=== PATIENT | male | born 1965 | race Caucasian/White ===

== ENCOUNTER 2021-02-07 15:34 | Emergency (ER) | payer BC ==
--- NOTE | 2021-02-07 16:37 | ED ---
General Adult HPI - General Stated complaint: Covid Symptoms worsening Time Seen by Provider: 02/07/21 16:31 - History of Present Illness Initial comments: 55 year-old male patient presents for worsening COVID symptoms. States he started having symptoms 6 days ago. Had positive COVID test on Monday. States he is having increasing cough, congestion, and chills. He reports nausea and headaches. Has been taking cough syrup without relief. Denies having fevers. Denies any past medical history. Patient denies any recent rash, chest pain, abdominal pain, nausea, vomiting, diarrhea, constipation, back pain, numbness, tingling, dizziness, weakness, hematuria, dysuria, urinary urgency, urinary frequency, or any other complaints. - Related Data Home Medications Medication Instructions Recorded Confirmed Albuterol Inhaler [Ventolin Hfa 1 - 2 puff INHALATION RT-Q4H PRN 02/07/21 02/07/21 Inhaler] Aspirin EC [Ecotrin] 325 mg PO DAILY 02/07/21 02/07/21 Codeine Phosphate/Guaifenesin 5 ml PO Q6H PRN 02/07/21 02/07/21 [Guaifen-Codeine 100-10 mg/5 ml] Finasteride [Proscar] 5 mg PO DAILY 02/07/21 02/07/21 Testosterone Cypionate 500 mg IM SA 02/07/21 02/07/21 [Depo-Testosterone] Previous Rx's Medication Instructions Recorded Dexamethasone 6 mg PO DAILY #9 tablet 02/07/21 guaiFENesin-DM 600/30MG [Mucinex 2 each PO Q12HR PRN #20 tab 02/07/21 Dm] Allergies Allergy/AdvReac Type Severity Reaction Status Date / Time Sulfa (Sulfonamide Allergy Rash/Hives Verified 02/07/21 18:20 Antibiotics) Review of Systems ROS Statement: Those systems with pertinent positive or pertinent negative responses have been documented in the HPI. ROS Other: All systems not noted in ROS Statement are negative. General Exam General appearance: alert, in no apparent distress, other (This is a well- developed, well-nourished adult male patient in no acute distress. Vital signs upon presentation temperature 101.4F oral, pulse 100, respirations 19, blood pressure 146/89, pulse ox 95% on room air.) ENT exam: Present: normal exam, normal oropharynx, mucous membranes moist Respiratory exam: Present: normal lung sounds bilaterally. Absent: respiratory distress, wheezes, rales, rhonchi, stridor Cardiovascular Exam: Present: regular rate, normal rhythm, normal heart sounds. Absent: systolic murmur, diastolic murmur, rubs, gallop, clicks GI/Abdominal exam: Present: soft, normal bowel sounds. Absent: distended, tenderness, guarding, rebound, rigid Neurological exam: Present: alert, oriented X3, CN II-XII intact Psychiatric exam: Present: normal affect, normal mood Skin exam: Present: warm, dry, intact, normal color. Absent: rash Course Vital Signs 02/07/21 02/07/21 02/07/21 16:42 17:30 18:47 Temperature 101.4 F H 101.3 F H Pulse Rate 100 99 Respiratory 19 18 20 Rate Blood Pressure 146/89 138/80 O2 Sat by Pulse 95 92 L Oximetry 02/07/21 19:21 Temperature 101.3 F H Pulse Rate 99 Respiratory 20 Rate Blood Pressure 138/80 O2 Sat by Pulse 92 L Oximetry Medical Decision Making - Medical Decision Making 55-year-old male patient presented to the emergency department today for evaluation of increasing cough, shortness of breath, sweats after being diagnosed with COVID-19. Physical examination is unremarkable. Lungs are clear to auscultation with good air movement. Has no extremity swelling. Oxygen saturation is satisfactory. Chest x-ray is negative. Patient was given Regeneron antibody infusion without any complications. Be discharged home with Mucinex and dexamethasone. Is instructed to follow-up with his primary care physician for recheck in 1-2 days. Return parameters were discussed in detail. He verbalizes understanding and agrees with this plan. Case discussed with my attending Dr. Thomas. - Radiology Data Radiology results: report reviewed, image reviewed Two-view x-ray of the chest is obtained. Report was reviewed in its entirety. Impression by Dr. Foss shows no active cardiopulmonary disease. Disposition Clinical Impression: COVID-19 Disposition: HOME SELF-CARE Condition: Good Instructions (If sedation given, give patient instructions): Coronavirus Disease 2019 (COVID-19) Additional Instructions: Take Tylenol and Motrin for fever control. Increase fluids. Rest. Follow-up with your primary care physician for recheck in 1-2 days. Return for any new, worsening, or concerning symptoms. Prescriptions: Dexamethasone 6 mg PO DAILY #9 tablet guaiFENesin-DM 600/30MG [Mucinex Dm] 2 each PO Q12HR PRN #20 tab PRN Reason: Cough Is patient prescribed a controlled substance at d/c from ED?: No Referrals: Jonah Neville MD [Primary Care Provider] - 1-2 days Time of Disposition: 19:16
[2021-02-07] MEDS ORDERED: CASIRIVIMAB (REGN10933) (EUA) 600 MG, IMDEVIMAB (REGN10987) (EUA) 600 MG in SODIUM CHLO... IVPB ONE (17:15)
[2021-02-07] MEDS ORDERED: SODIUM CHLORIDE 0.9% 50 ML IVPB ONE (17:15)
--- NOTE | 2021-02-07 18:08 | XR ---
EXAMINATION TYPE: XR chest 2V DATE OF EXAM: 02/07/2021 COMPARISON: NONE HISTORY: Fever and cough TECHNIQUE: 2 views FINDINGS: There is no heart failure nor confluent pneumonic infiltrate. Costophrenic angles are clear . Bony thorax is intact. There is plate fixing old right clavicle fracture. IMPRESSION: No active cardiopulmonary pulmonary disease.
[2021-02-07] MEDS ORDERED: ACETAMINOPHEN TAB 500 MG TAB PO STA (18:38)
[2021-02-07] MEDS ORDERED: IBUPROFEN 600 MG TAB PO STA (18:38)
[2021-02-07 19:03] VITALS: BP 138/80; PULSE 99; RESP 20; TEMP 101.3
== END 2021-02-07 19:25 | disposition home or self-care (01) ==
LOC: EC 15:34
DX: U07.1 COVID-19 (principal); Z79.52 Long term (current) use of systemic steroids; Z79.82 Long term (current) use of aspirin; Z79.899 Other long term (current) drug therapy; Z88.2 Allergy status to sulfonamides
CPT/HCPCS: 96365; 99285 ×2; 71046; M0243; Q0243